=== PATIENT | female | born 1965 | race Two or more races ===

== ENCOUNTER → 2025-07-17 | Outpatient (CLI) | payer MEDICARE, MEDICAID, SELFPAY ==
--- NOTE | 2025-07-17 09:30 | XR_ITS ---
Esophagram: Study was performed on 07/17/2025 at 10:20 8:00 a.m. INDICATION: Painful and difficulty swallowing for 3 years Initially the patient was evaluated in the upright position during swallowing of the contrast media. The hypopharynx appears normal, and the entire esophagus likewise appears normal with normal esophageal peristalsis. The esophagogastric junction appear reasonably normal there is a very small sliding-type gastric hiatal hernia seen in the distal end of the esophagus At the end of the exam when the patient was examined in the recumbent position during water swallowing, there was mild but definite gastroesophageal reflux of the contrast media IMPRESSION: 1. Anatomically normal esophagram with normal esophageal peristalsis 2. Very small sliding-type gastric hernia 3. There is a small but definite amount of gastroesophageal reflux.
== END | disposition home or self-care (01) ==
PROVIDERS: Referring Provider Nurse Practitioner Family; Visit Provider Nurse Practitioner Family
DX: K46.9 Unspecified abdominal hernia without obstruction or gangrene (principal); K21.9 Gastro-esophageal reflux disease without esophagitis
CPT/HCPCS: 74220; A4649